=== PATIENT | female | born 1950 | race Caucasian/White ===

== ENCOUNTER 2022-09-29 08:19 | Day surgery (SDC) | payer MEDICARE ==
[~2022-09-29] VITALS: Ht 162.6 cm; Wt 61.2 kg
[~2022-09-29 08:19] MED LIST: ADVAIR DISKU IN; ADVAIR HF1 IN; BIOTIN5 MG PO; CRESTOR5 MG PO; MIDODRINE HYDROC5 MG; MYSOLINE50 M1 PO; TENORMIN50 MG OR; VENTOLIN HF1 IN; VITAMIN D32000 UNI2 PO; XALATAN 0.005%2.5 ML OU; ZOCOR40 MG OR
[2022-09-29 11:18] VITALS: BP 178/104
== END 2022-09-29 11:40 | disposition home or self-care (01) ==
LOC: ENDO 08:19 → ORM 15:10
PROVIDERS: ATTEND Internal Medicine Gastroenterology
PROC: 0DB98ZX Excision of Duodenum, Via Natural or Artificial Opening Endoscopic, Diagnostic (ICD-10-PCS; principal; 2022-09-29)
PROC: 0DB78ZX Excision of Stomach, Pylorus, Via Natural or Artificial Opening Endoscopic, Diagnostic (ICD-10-PCS; 2022-09-29)
DX: K29.50 Unspecified chronic gastritis without bleeding (principal); I12.9 Hypertensive chronic kidney disease with stage 1 through stage 4 chronic kidney disease, or unspecified chronic kidney disease; N18.30 Chronic kidney disease, stage 3 unspecified; J45.909 Unspecified asthma, uncomplicated; E78.5 Hyperlipidemia, unspecified; K51.90 Ulcerative colitis, unspecified, without complications; Z93.2 Ileostomy status